=== PATIENT | female | born 1965 | race Caucasian/White ===

== ENCOUNTER 2016-02-29 16:39 | Emergency (ER) | payer OTHER ==
[~2016-02-29] VITALS: Ht 172.7 cm; Wt 76.8 kg
[~2016-02-29 16:39] MED LIST: ALPRAZOLAM0.5 MG PO; AMOXICILLIN500 M1 PO; ATORVASTATIN CA10 MG PO; Aspirin E.C. PO; BACTROBAN CREAM15 GM; BUSPAR10 MG PO; BUSPAR15 MG PO; BUSPAR5 MG PO; BUSPAR7.5 MG PO; CALCIUM 1,2001 EACH PO; CALCIUM 600 +1 EAC7 PO; CEFTIN500 MG PO; CLONAZEPAM1 MG PO; CLONAZEPAM2 M1 PO; CLONAZEPAM2 MG PO; CLONIDINE HCL0.1 MG PO; COLACE100 MG PO; Cipro PO; DICLOFENAC SODI50 MG PO; DICYCLOMINE HCL20 MG PO; DILAUDID2 MG PO; EFFEXOR XR150 MG PO; EFFEXOR XR75 MG PO; EFFEXOR75 MG PO; ELAVIL25 MG PO; ENDOCET 10-3251 EACH; ENDOCET 10-3251 EACH PO; FERROUS SULFAT324 MG; FERROUS SULFATE PO; FISH OIL 1,0001 EAC7 PO; FISH OIL CONC1 EACH PO; FLEXERIL10 MG PO; FLONASE16 G1 BOTH NARES; FLONASE16 GM NS; FLOVENT 44120 INHALA IH; FLOVENT DISKUS50 MCG IH; FORTAMET1000 M1 PO; Feosol PO; GEMFIBROZIL600 MG PO; GLUCOPHAGE1000 MG PO; HEMOCYTE324 MG PO; IMITREX100 MG PO; IMITREX6 MG/0.5 M SC; IMITREX6 MG/0.5 M SQ; IMITREX6 MG/0.52 SC; IMITREX6 MG/0.52 SQ; IMITREX6 MG/0.53 SC; IMODIUM MS REL1 EACH PO; IRON325 M1 PO; IRON325 MG; JANUMET; JANUMET 50-1,01 EACH PO; JANUMET 50/11 TABLET PO; KEFLEX500 MG PO; KLONOPIN2 MG PO; LISINOPRIL10 MG PO; LOPID600 MG PO; LOPRESSOR50 MG PO; LOVAZA1 GM PO; LYRICA100 MG PO; LYRICA50 MG PO; LYRICA75 MG PO; MECLIZINE HCL25 MG PO; MEDROL DOSEPAK4 MG PO; METAXALONE800 MG; METAXALONE800 MG PO; METFORMIN HCL500 MG PO; METOCLOPRAMIDE10 MG PO; METOPROLOL TART50 MG PO; MIRALAX17 GM PO; MIRTAZAPINE30 MG PO; MORPHINE SULFAT15 M1 PO; MS CONTIN,ORAMO15 M1 PO; NAPROSYN500 MG PO; OMEPRAZOLE20 M2 PO; OXYCODONE-APAP1 EACH PO; PERCOCET 10/1 TABLET PO; PERCOCET 5/31 TABLET PO; PERCOCET 7.51 TABLET PO; PHENADOZ25 MG PR; PHENERGAN12.5 M1 PO; PHENERGAN25 MG PR; PRAVACHOL40 MG PO; PRILOSEC OTC20 M1 PO; PRILOSEC OTC20 MG PO; PRILOSEC20 MG PO; PRILOSEC40 MG PO; PRINIVIL10 MG PO; PROMETHAZINE HC25 M1; PROMETHAZINE HC25 M1 PO; PROTONIX40 MG PO; Pravachol PO; QUETIAPINE FUM400 MG PO; RANITIDINE HCL150 MG PO; REGLAN10 M1 PO; REGLAN10 MG PO; REMERON30 M2 PO; RISPERDAL1 MG PO; Remeron PO; SEROQUEL XR150 MG PO; SEROQUEL100 MG PO; SEROQUEL200 MG PO; SEROQUEL300 MG PO; SEROQUEL400 MG PO; SEROquel PO; SKELAXIN400 M1 PO; SKELAXIN800 MG PO; STOOL SOFTENER100 MG PO; SUMATRIPTA6 MG/0.52; SUMATRIPTAN SU100 MG PO; Skelaxin PO; TOPAMAX50 MG PO; TOPIRAMATE50 MG PO; TOPROL XL50 MG PO; TORADOL10 MG PO; ULTRAM50 MG PO; VENLAFAXINE HC100 MG PO; VICODIN ES 71 TABLET PO; Vicodin ES 7.5/750 PO; ZANTAC150 MG PO; ZOFRAN ODT4 MG PO; ZOFRAN4 MG PO; ZOFRAN8 MG PO; [UNRECOGNIZED DRUG - OTHER] IV
[2016-02-29 19:46] LABS: HEMATOCRIT 36.9 % (36.0-46.0); MCH 28.9 PG (29.0-34.0); MCHC 33.3 G/DL (30.0-36.0); MCV 86.6 FL (83-99); MEAN PLAT.VOLUME 9.3 uM^3 (9.5-12.4); PLATELET COUNT 221 K/uL (156-360); RBC DIS.WIDTH-SD 40.1 % (39-53); RED BLOOD COUNT 4.26 M/uL (3.80-5.20); WHITE BLOOD COUNT 7.6 K/uL (4.1-10.2)
[2016-02-29 19:54] LABS: CHLORIDE 105 mEq/L (99-109); POTASSIUM 3.8 mEq/L (3.7-5.4); SODIUM 140 mEq/L (136-147)
[2016-02-29 19:56] LABS: GLUCOSE 101 mg/dL (70-99)
[2016-02-29 19:57] LABS: ANION GAP 11 MEQ/L (2-14)
[2016-02-29 19:58] LABS: TOTAL BILIRUBIN 0.4 mg/dL (0.0-1.0)
[2016-02-29 19:59] LABS: ALKALINE PHOSPHATASE 84 IU/L (3-129)
[2016-02-29 20:00] LABS: GFR ESTIMATE (CALCULATED) > 59 mL/min/
[2016-02-29 20:01] LABS: UREA NITROGEN (BUN) 23 mg/dL (9-23)
[2016-02-29 21:44] LABS: ADD MIUA? YES; BILIRUBIN NEGATIVE; BLOOD NEGATIVE; COLOR YELLOW ((YELLOW)); GLUCOSE (STRIP) NEGATIVE; KETONES NEGATIVE; LEUKOCYTES SMALL; NITRITE NEGATIVE; PROTEIN (STRIP) 30; SPECIFIC GRAVITY 1.031 (1.000-1.030); UROBILINOGEN 0.2 MG/DL (0.2-1.0)
[2016-02-29 22:01] VITALS: BP 115/59
[2016-02-29 22:01] LABS: BACTERIA NONE SEEN; CASTS NONE SEEN /LPF; CRYSTALS NONE SEEN; EPITHELIAL CELLS RARE; MUCUS NONE SEEN; RED BLOOD CELLS 0-5 /HPF (0-5); UBAC NUMBER 94.4; UCUL ADDED? NO; UEPI NUMBER 8.5; URBC NUMBER 20.5; UWBC NUMBER 96.5; WHITE BLOOD CELLS 15-20 /HPF (0-5)
== END 2016-02-29 22:06 | disposition home or self-care (01) ==
LOC: EME 16:39
PROVIDERS: Physician Assistant
DX: K59.00 Constipation, unspecified (principal); R10.31 Right lower quadrant pain; R39.15 Urgency of urination; R68.83 Chills (without fever); G89.29 Other chronic pain; E11.9 Type 2 diabetes mellitus without complications; E78.5 Hyperlipidemia, unspecified; Z79.891 Long term (current) use of opiate analgesic; J45.909 Unspecified asthma, uncomplicated
CPT/HCPCS: 74177; 80053; 81003; 85027; 99281; 99285; J2270; J7030

== ENCOUNTER 2016-03-20 10:59 | Day surgery (SDC) | payer OTHER ==
[~2016-03-20] VITALS: Ht 167.6 cm; Wt 76.6 kg
[~2016-03-20 10:59] MED LIST changes: +METFORMIN HCL1000 MG PO
[2016-03-20 11:50] LABS: POINT-OF-CARE METER ID UU14174212
== END 2016-03-20 12:45 | disposition home or self-care (01) ==
LOC: PAIN 10:59 → SDC 11:30 → PAIN 11:30
PROVIDERS: Anesthesiology Pain Medicine
PROC: 015R3ZZ Destruction of Sacral Nerve, Percutaneous Approach (ICD-10-PCS; principal; 2016-03-20)
PROC: 015B3ZZ Destruction of Lumbar Nerve, Percutaneous Approach (ICD-10-PCS; principal; 2016-03-20)
DX: M47.896 Other spondylosis, lumbar region (principal); M51.26 Other intervertebral disc displacement, lumbar region; M54.16 Radiculopathy, lumbar region; F41.1 Generalized anxiety disorder; M48.02 Spinal stenosis, cervical region; M79.1 Myalgia
CPT/HCPCS: 82948; J1030; J2250; J3010; S0020

== ENCOUNTER 2016-03-27 07:57 | Day surgery (SDC) | payer OTHER ==
[~2016-03-27] VITALS: Ht 177.8 cm; Wt 75.3 kg
[2016-03-27 08:21] LABS: POINT-OF-CARE METER ID UU14174212
== END 2016-03-27 10:12 | disposition home or self-care (01) ==
LOC: PAIN 07:57 → SDC 08:30 → PAIN 10:12
PROVIDERS: Anesthesiology Pain Medicine
PROC: 015B3ZZ Destruction of Lumbar Nerve, Percutaneous Approach (ICD-10-PCS; principal; 2016-03-27)
PROC: 015R3ZZ Destruction of Sacral Nerve, Percutaneous Approach (ICD-10-PCS; principal; 2016-03-27)
DX: M47.896 Other spondylosis, lumbar region (principal); M51.26 Other intervertebral disc displacement, lumbar region; M54.16 Radiculopathy, lumbar region; G62.9 Polyneuropathy, unspecified; F41.1 Generalized anxiety disorder; M79.1 Myalgia; M48.02 Spinal stenosis, cervical region; F33.1 Major depressive disorder, recurrent, moderate
CPT/HCPCS: 82948; J1030; J3010; S0020

== ENCOUNTER 2016-08-12 00:43 | Inpatient (IN) | payer OTHER ==
[~2016-08-12] VITALS: Ht 177.8 cm; Wt 79.5 kg
[~2016-08-12 00:43] MED LIST changes: +LYRICA150 MG PO
[2016-08-12 01:14] LABS: HEMATOCRIT 36.2 % (36.0-46.0); MCH 29.9 PG (29.0-34.0); MCHC 33.7 G/DL (30.0-36.0); MCV 88.7 FL (83-99); MEAN PLAT.VOLUME 9.6 uM^3 (9.5-12.4); PLATELET COUNT 220 K/uL (156-360); RBC DIS.WIDTH-CV 13.2 % (11.8-14.6); RBC DIS.WIDTH-SD 42.9 % (39-53); RED BLOOD COUNT 4.08 M/uL (3.80-5.20); WHITE BLOOD COUNT 7.5 K/uL (4.1-10.2)
[2016-08-12 01:23] LABS: CHLORIDE 105 mEq/L (99-109)
[2016-08-12 01:24] LABS: POTASSIUM 3.7 mEq/L (3.7-5.4); SODIUM 142 mEq/L (136-147)
[2016-08-12 01:25] LABS: GLUCOSE 277 mg/dL (70-99)
[2016-08-12 01:27] LABS: ANION GAP 11 MEQ/L (2-14)
[2016-08-12 01:28] LABS: SERUM ETHYL ALCOHOL < 10 mg/dL
[2016-08-12 01:29] LABS: GFR ESTIMATE (CALCULATED) 50 mL/min/
[2016-08-12 01:30] LABS: UREA NITROGEN (BUN) 20 mg/dL (9-23)
[2016-08-12 01:34] LABS: TROP-I INTERPRETATION NEGATIVE; TROPONIN-I < 0.01 ng/mL (0.0-0.30)
[2016-08-12 01:40] LABS: INTER. NORMALIZED RATIO 0.9; PTT 23.6 (25-32)
[2016-08-12 01:48] LABS: PROTHROMBIN TIME 9.4 (9.2-11.2)
[2016-08-12 09:33] VITALS: BP 144/79
[2016-08-12 09:36] VITALS: BP 144/79
[2016-08-12 15:35] VITALS: BP 118/56
[2016-08-13 07:22] VITALS: BP 145/73
[2016-08-13 15:46] VITALS: BP 157/81
[2016-08-14 01:54] VITALS: BP 154/88
[2016-08-14 01:56] LABS: POINT-OF-CARE METER ID UU14188576
[2016-08-14 02:37] VITALS: BP 125/68
[2016-08-14 02:49] LABS: BASOPHIL COUNT 0.1 K/uL (0-0.1); EOSINOPHIL (%) 1.3 % (0-5); EOSINOPHIL COUNT 0.1 K/uL (0-0.3); HEMATOCRIT 39.4 % (36.0-46.0); IMMATURE GRANULOCYTE (%) 0.8 % (0.0-0.7); IMMATURE GRANULOCYTE COUNT 0.1 K/uL; INSTRUMENT ABS NEUTROPHIL CT 6.4 K/uL; LYMPHOCYTE COUNT 1.5 K/uL (1.0-2.8); MCH 28.7 PG (29.0-34.0); MCHC 32.7 G/DL (30.0-36.0); MCV 87.6 FL (83-99); MEAN PLAT.VOLUME 9.3 uM^3 (9.5-12.4); MONOCYTE (%) 5.1 % (3-12); MONOCYTE COUNT 0.4 K/uL (0-0.8); NEUTROPHIL (%) 74.5 % (45-76); NEUTROPHIL COUNT 6.4 K/uL (1.8-6.4); PLATELET COUNT 197 K/uL (156-360); RBC DIS.WIDTH-CV 12.8 % (11.8-14.6); WHITE BLOOD COUNT 8.6 K/uL (4.1-10.2)
[2016-08-14 02:57] LABS: CHLORIDE 102 mEq/L (99-109); SODIUM 139 mEq/L (136-147)
[2016-08-14 02:59] LABS: GLUCOSE 203 mg/dL (70-99)
[2016-08-14 03:00] LABS: ANION GAP 10 MEQ/L (2-14)
[2016-08-14 03:01] LABS: TOTAL BILIRUBIN 0.6 mg/dL (0.0-1.0)
[2016-08-14 03:02] LABS: ALKALINE PHOSPHATASE 99 IU/L (3-129)
[2016-08-14 03:03] LABS: GFR ESTIMATE (CALCULATED) > 59 mL/min/
[2016-08-14 03:04] LABS: UREA NITROGEN (BUN) 18 mg/dL (9-23)
[2016-08-14 03:48] LABS: D-DIMER LATEX NEGATIVE
[2016-08-14] MEDS ORDERED: CEFTIN500 MG PO (15:31)
[2016-08-14] MEDS ORDERED: MACROBID100 MG PO (16:19)
== END 2016-08-14 02:52 | DRG 885 ==
LOC: EME 00:43 → 1WEST 03:40 → EDOF 03:40 → 1WEST 09:24
PROVIDERS: Emergency Medicine; Internal Medicine; Psychiatry & Neurology Psychiatry
DX: F33.3 Major depressive disorder, recurrent, severe with psychotic symptoms (principal); R45.851 Suicidal ideations; F41.1 Generalized anxiety disorder; R42 Dizziness and giddiness; R11.2 Nausea with vomiting, unspecified; E11.42 Type 2 diabetes mellitus with diabetic polyneuropathy; I50.9 Heart failure, unspecified; R07.9 Chest pain, unspecified; E78.00 Pure hypercholesterolemia, unspecified; E78.5 Hyperlipidemia, unspecified; G89.29 Other chronic pain; G43.909 Migraine, unspecified, not intractable, without status migrainosus; F17.200 Nicotine dependence, unspecified, uncomplicated; M54.9 Dorsalgia, unspecified; R61 Generalized hyperhidrosis; R79.89 Other specified abnormal findings of blood chemistry; M79.606 Pain in leg, unspecified; Z90.710 Acquired absence of both cervix and uterus
CPT/HCPCS: 71020; 80048; 80053; 82948; 84484; 85025; 85027; 85378; 85610; 85730; 93005; 99281; 99285; G0480; J3030; Q0169

== ENCOUNTER 2016-08-14 02:52 | Observation (INO) | payer OTHER ==
[~2016-08-14] VITALS: Ht 177.8 cm; Wt 76.9 kg
[2016-08-14 03:28] VITALS: BP 142/81
[2016-08-14 04:25] LABS: TROP-I INTERPRETATION NEGATIVE; TROPONIN-I < 0.01 ng/mL (0.0-0.30)
[2016-08-14 07:24] VITALS: BP 139/83
[2016-08-14 07:31] VITALS: BP 124/71; BP 139/83
[2016-08-14 07:35] VITALS: BP 122/67
[2016-08-14 07:42] LABS: POINT-OF-CARE METER ID UU14149397
[2016-08-14 09:52] LABS: HEMATOCRIT 39.1 % (36.0-46.0); MCH 29.1 PG (29.0-34.0); MCV 88.3 FL (83-99); MEAN PLAT.VOLUME 9.6 uM^3 (9.5-12.4); PLATELET COUNT 224 K/uL (156-360); RBC DIS.WIDTH-CV 12.9 % (11.8-14.6); RBC DIS.WIDTH-SD 41.6 % (39-53); RED BLOOD COUNT 4.43 M/uL (3.80-5.20)
[2016-08-14 10:16] LABS: ALKALINE PHOSPHATASE 87 IU/L (3-129); ANION GAP 10 MEQ/L (2-14); CHLORIDE 101 MEQ/L (99-109); GFR ESTIMATE (CALCULATED) > 59 mL/min/; GLUCOSE 131 mg/dL (70-99); SAMPLE HEMOLYSIS CHECK 0; SAMPLE ICTERIC CHECK 0; SAMPLE LIPEMIA CHECK 0; SODIUM 139 MEQ/L (136-147); TOTAL BILIRUBIN 0.7 MG/DL (0.0-1.0); UREA NITROGEN (BUN) 16 mg/dL (9-23)
[2016-08-14 10:35] LABS: TROP-I INTERPRETATION NEGATIVE; TROPONIN-I < 0.01 ng/mL (0.0-0.30)
[2016-08-14 11:36] LABS: POINT-OF-CARE METER ID UU14188577
[2016-08-14 12:56] VITALS: BP 165/85
[2016-08-14 13:30] LABS: ADD MIUA? YES; BILIRUBIN NEGATIVE; BLOOD NEGATIVE; COLOR YELLOW ((YELLOW)); GLUCOSE (STRIP) NEGATIVE; KETONES NEGATIVE; LEUKOCYTES LARGE; NITRITE NEGATIVE; PROTEIN (STRIP) 100; SPECIFIC GRAVITY 1.018 (1.000-1.030); UROBILINOGEN 0.2 MG/DL (0.2-1.0)
[2016-08-14 13:52] LABS: BACTERIA RARE /HPF; EPITHELIAL CELLS 1+ /HPF; MUCUS TRACE /LPF; RED BLOOD CELLS 0-5 /HPF (0-5); UCUL ADDED? YES; WHITE BLOOD CELLS TNTC /HPF (0-5)
[2016-08-14] MEDS ORDERED: CEFTIN500 MG PO (15:31)
[2016-08-14 15:32] LABS: TROP-I INTERPRETATION NEGATIVE; TROPONIN-I < 0.01 ng/mL (0.0-0.30)
[2016-08-14] MEDS ORDERED: MACROBID100 MG PO (16:19)
[2016-08-14 16:53] LABS: POINT-OF-CARE METER ID UU14149397
[2016-08-14 19:11] VITALS: BP 131/63
== END 2016-08-14 19:20 ==
LOC: 3EAST 02:52
PROVIDERS: Hospitalist; Internal Medicine; Physician Assistant
DX: I95.1 Orthostatic hypotension (principal); F33.9 Major depressive disorder, recurrent, unspecified; R45.851 Suicidal ideations; N39.0 Urinary tract infection, site not specified; R11.0 Nausea; R42 Dizziness and giddiness
CPT/HCPCS: 71010; 80053; 81003; 82948; 83605; 84484; 85027; 85379; 87040; 87086; 93005; 97165 GO; G0378; J1815; J2405; J7030; S0028

== ENCOUNTER 2016-08-14 19:02 | Inpatient (IN) | payer OTHER ==
[~2016-08-14] VITALS: Ht 177.8 cm; Wt 75.0 kg
[~2016-08-14 19:02] MED LIST changes: +MACROBID100 MG PO
[2016-08-14 19:34] VITALS: BP 152/70
[2016-08-15 07:55] VITALS: BP 105/57
[2016-08-15 15:24] VITALS: BP 129/58
[2016-08-16 07:22] VITALS: BP 114/58
[2016-08-16 15:25] VITALS: BP 109/62
[2016-08-17 07:29] VITALS: BP 117/73
[2016-08-17 16:20] VITALS: BP 120/59
[2016-08-18 07:53] VITALS: BP 116/68
[2016-08-18 15:49] VITALS: BP 122/55
[2016-08-19 07:40] VITALS: BP 119/65
[2016-08-19] MEDS ORDERED: CLONAZEPAM1 MG PO (09:23)
[2016-08-19] MEDS ORDERED: NITROFURANTOIN50 MG PO (09:23)
[2016-08-19] MEDS ORDERED: EFFEXOR50 MG PO (09:23)
[2016-08-19] MEDS ORDERED: NITROFURANTOIN100 MG PO (09:25)
== END 2016-08-19 14:00 | disposition home or self-care (01) | DRG 885 ==
LOC: 1WEST 19:02
DX: F33.2 Major depressive disorder, recurrent severe without psychotic features (principal); N39.0 Urinary tract infection, site not specified; R45.851 Suicidal ideations; F17.210 Nicotine dependence, cigarettes, uncomplicated; F41.1 Generalized anxiety disorder; E11.9 Type 2 diabetes mellitus without complications; G47.00 Insomnia, unspecified; Z88.5 Allergy status to narcotic agent; Z88.6 Allergy status to analgesic agent; Z88.1 Allergy status to other antibiotic agents; Z79.84 Long term (current) use of oral hypoglycemic drugs
CPT/HCPCS: 97150 GO; 97530 GO; J3030; Q0169

== ENCOUNTER 2016-10-21 09:35 | Emergency (ER) | payer OTHER ==
[~2016-10-21] VITALS: Ht 177.8 cm; Wt 67.0 kg
[~2016-10-21 09:35] MED LIST changes: +EFFEXOR50 MG PO; +NITROFURANTOIN100 MG PO; +NITROFURANTOIN50 MG PO
[2016-10-21 10:28] LABS: BASOPHIL COUNT 0.1 K/uL (0-0.1); EOSINOPHIL (%) 2.4 % (0-5); EOSINOPHIL COUNT 0.2 K/uL (0-0.3); HEMATOCRIT 38.9 % (36.0-46.0); IMMATURE GRANULOCYTE (%) 0.6 % (0.0-0.7); INSTRUMENT ABS NEUTROPHIL CT 3.3 K/uL; LYMPHOCYTE COUNT 2.4 K/uL (1.0-2.8); MCH 29.8 PG (29.0-34.0); MCHC 34.4 G/DL (30.0-36.0); MCV 86.6 FL (83-99); MEAN PLAT.VOLUME 9.6 uM^3 (9.5-12.4); MONOCYTE (%) 5.5 % (3-12); MONOCYTE COUNT 0.3 K/uL (0-0.8); NEUTROPHIL (%) 52.6 % (45-76); NEUTROPHIL COUNT 3.3 K/uL (1.8-6.4); PLATELET COUNT 195 K/uL (156-360); RBC DIS.WIDTH-SD 41.1 % (39-53); RED BLOOD COUNT 4.49 M/uL (3.80-5.20); WHITE BLOOD COUNT 6.2 K/uL (4.1-10.2)
[2016-10-21 10:35] LABS: PROTHROMBIN TIME 10.6 SEC (10.2-12.9)
[2016-10-21 10:37] LABS: CHLORIDE 105 mEq/L (99-109); SODIUM 138 mEq/L (136-147)
[2016-10-21 10:38] LABS: PTT 24.7 SEC (25-37)
[2016-10-21 10:39] LABS: GLUCOSE 157 mg/dL (70-99)
[2016-10-21 10:41] LABS: ANION GAP 13 MEQ/L (2-14); TOTAL BILIRUBIN 0.5 mg/dL (0.0-1.0)
[2016-10-21 10:43] LABS: ALKALINE PHOSPHATASE 106 IU/L (3-129); GFR ESTIMATE (CALCULATED) > 59 mL/min/
[2016-10-21 10:44] LABS: UREA NITROGEN (BUN) 19 mg/dL (9-23)
[2016-10-21 10:45] LABS: DIRECT BILIRUBIN 0.2 mg/dL (0.0-0.3)
[2016-10-21 10:46] LABS: LIPASE 67 U/L (1.0-51.0)
[2016-10-21 10:52] LABS: TROP-I INTERPRETATION NEGATIVE; TROPONIN-I < 0.01 ng/mL (0.0-0.30)
[2016-10-21 13:42] LABS: TROP-I INTERPRETATION NEGATIVE; TROPONIN-I < 0.01 ng/mL (0.0-0.30)
[2016-10-21] MEDS ORDERED: ZOFRAN ODT4 MG PO (14:08)
[2016-10-21 14:44] VITALS: BP 147/68
== END 2016-10-21 14:45 | disposition home or self-care (01) ==
LOC: EME 09:35
PROVIDERS: Emergency Medicine
DX: R07.9 Chest pain, unspecified (principal); R11.2 Nausea with vomiting, unspecified; I50.9 Heart failure, unspecified; E78.5 Hyperlipidemia, unspecified; E11.9 Type 2 diabetes mellitus without complications; J45.909 Unspecified asthma, uncomplicated; Z79.84 Long term (current) use of oral hypoglycemic drugs; Z85.41 Personal history of malignant neoplasm of cervix uteri; Z87.891 Personal history of nicotine dependence; Z82.49 Family history of ischemic heart disease and other diseases of the circulatory system
CPT/HCPCS: 71020; 80048; 80076; 83605; 83690; 83880; 84484; 85025; 85610; 85730; 93005; 99281; 99285; J1200; J2765; J7030

== ENCOUNTER 2016-10-27 18:59 | Observation (INO) | payer OTHER ==
[~2016-10-27] VITALS: Ht 177.8 cm; Wt 75.1 kg
[~2016-10-27 18:59] MED LIST changes: -LYRICA150 MG PO
[2016-10-27 20:10] LABS: HEMATOCRIT 39.7 % (36.0-46.0); MCH 29.5 PG (29.0-34.0); MCV 86.7 FL (83-99); MEAN PLAT.VOLUME 9.7 uM^3 (9.5-12.4); PLATELET COUNT 252 K/uL (156-360); RBC DIS.WIDTH-SD 40.9 % (39-53); RED BLOOD COUNT 4.58 M/uL (3.80-5.20); WHITE BLOOD COUNT 7.8 K/uL (4.1-10.2)
[2016-10-27 20:19] LABS: CHLORIDE 104 mEq/L (99-109); POTASSIUM 3.7 mEq/L (3.7-5.4); SODIUM 140 mEq/L (136-147)
[2016-10-27 20:20] LABS: GLUCOSE 115 mg/dL (70-99)
[2016-10-27 20:22] LABS: ANION GAP 14 MEQ/L (2-14)
[2016-10-27 20:24] LABS: GFR ESTIMATE (CALCULATED) > 59 mL/min/
[2016-10-27 20:25] LABS: UREA NITROGEN (BUN) 19 mg/dL (9-23)
[2016-10-27 20:33] LABS: TROP-I INTERPRETATION NEGATIVE; TROPONIN-I < 0.01 ng/mL (0.0-0.30)
[2016-10-27 22:21] LABS: SERUM ETHYL ALCOHOL < 10 mg/dL
[2016-10-27 22:59] LABS: HDL CHOLESTEROL 37 MG/DL (Desirable>=50); NON-HDL CHOLESTEROL 215 mg/dL (Desirable<160); TOTAL CHOLESTEROL 252 mg/dL (Desirable<200); TRIGLYCERIDES 540 MG/DL (Normal: <150)
[2016-10-27 23:12] VITALS: BP 143/70
[2016-10-28] MEDS ORDERED: KLONOPIN2 MG PO (00:16)
[2016-10-28 04:29] VITALS: BP 123/67
[2016-10-28 07:55] VITALS: BP 121/60
[2016-10-28 08:43] LABS: POINT-OF-CARE METER ID UU13113831
[2016-10-28] MEDS ORDERED: VENLAFAXINE HC100 MG PO (10:57)
[2016-10-28] MEDS ORDERED: FLUOXETINE HCL20 M1 PO (10:58)
[2016-10-28] MEDS ORDERED: RANITIDINE HCL150 M1 PO (10:58)
[2016-10-28] MEDS ORDERED: REMERON30 M2 PO (10:58)
[2016-10-28] MEDS ORDERED: LEVOCETIRIZINE D5 MG PO (10:59)
[2016-10-28 11:54] VITALS: BP 122/62
[2016-10-28 12:16] LABS: TROP-I INTERPRETATION NEGATIVE; TROPONIN-I < 0.01 ng/mL (0.0-0.30)
[2016-10-28 12:43] LABS: POINT-OF-CARE METER ID UU13113831
[2016-10-28 12:56] LABS: ADD MIUA? YES; BILIRUBIN NEGATIVE; BLOOD NEGATIVE; COLOR YELLOW ((YELLOW)); GLUCOSE (STRIP) NEGATIVE; KETONES NEGATIVE; LEUKOCYTES LARGE; NITRITE NEGATIVE; PROTEIN (STRIP) 100; SPECIFIC GRAVITY 1.031 (1.000-1.030); UROBILINOGEN 0.2 MG/DL (0.2-1.0)
[2016-10-28 13:02] LABS: BACTERIA NONE SEEN /HPF; EPITHELIAL CELLS RARE /HPF; MUCUS TRACE /LPF; RED BLOOD CELLS 0-5 /HPF (0-5); UCUL ADDED? YES; WHITE BLOOD CELLS 40-50 /HPF (0-5)
[2016-10-28 13:21] LABS: AMPHETAMINES QUANT VALUE 0 NG/ML; BARBITUATES QUANT VALUE 0 NG/ML; BENZODIAZEPINES, URINE SCREEN POSITIVE (200 ng/mL); MARIJUANA QUANT VALUE 0 NG/ML; OPIATES QUANTITATIVE VALUE 0 NG/ML; PHENCYCLIDINE QUANT VALUE 0 NG/ML
[2016-10-28 16:04] VITALS: BP 124/57
[2016-10-28 17:33] LABS: POINT-OF-CARE METER ID UU13113831
[2016-10-28 19:09] VITALS: BP 119/60
[2016-10-28 21:27] LABS: POINT-OF-CARE METER ID UU13113831
[2016-10-28 23:54] VITALS: BP 124/61
[2016-10-29 03:56] VITALS: BP 110/59
[2016-10-29 08:35] LABS: POINT-OF-CARE METER ID UU13113831
[2016-10-29 12:05] VITALS: BP 101/54
[2016-10-29 12:53] LABS: POINT-OF-CARE METER ID UU13113831
== END 2016-10-29 13:40 | disposition home or self-care (01) ==
LOC: EME 18:59 → EDOF 21:05 → 5WEST 21:05 → EDOF 21:05 → ENRESERV 21:09 → 5WEST 22:51
PROVIDERS: Internal Medicine; Physician Assistant Medical
DX: R07.89 Other chest pain (principal); G43.909 Migraine, unspecified, not intractable, without status migrainosus; R11.2 Nausea with vomiting, unspecified; R42 Dizziness and giddiness; F41.0 Panic disorder [episodic paroxysmal anxiety]; I10 Essential (primary) hypertension; E11.40 Type 2 diabetes mellitus with diabetic neuropathy, unspecified; J44.9 Chronic obstructive pulmonary disease, unspecified; B37.0 Candidal stomatitis; E78.5 Hyperlipidemia, unspecified; F31.9 Bipolar disorder, unspecified; Z87.891 Personal history of nicotine dependence; Z79.84 Long term (current) use of oral hypoglycemic drugs; Z91.5 Personal history of self-harm
CPT/HCPCS: 71020; 80048; 80061; 80306 90; 81003; 82948; 84484; 85027; 87086; 93005; 99281; 99285; G0378; G0480; J2060; J2405; J7030; Q0169

== ENCOUNTER 2016-12-01 14:36 | Emergency (ER) | payer OTHER ==
[~2016-12-01] VITALS: Ht 177.8 cm; Wt 78.2 kg
[~2016-12-01 14:36] MED LIST changes: +FLUOXETINE HCL20 M1 PO; +LEVOCETIRIZINE D5 MG PO; +RANITIDINE HCL150 M1 PO
[2016-12-01 18:02] VITALS: BP 149/49
== END 2016-12-01 18:03 | disposition home or self-care (01) ==
LOC: EME 14:36
DX: S93.402A Sprain of unspecified ligament of left ankle, initial encounter (principal); M54.2 Cervicalgia; M54.5 Low back pain; M25.512 Pain in left shoulder; X50.1XXA Overexertion from prolonged static or awkward postures, initial encounter; W01.0XXA Fall on same level from slipping, tripping and stumbling without subsequent striking against object, initial encounter; Y93.01 Activity, walking, marching and hiking; Y92.410 Unspecified street and highway as the place of occurrence of the external cause; M25.78 Osteophyte, vertebrae; I10 Essential (primary) hypertension; G89.29 Other chronic pain; Z79.891 Long term (current) use of opiate analgesic
CPT/HCPCS: 72100; 73030; 73564; 73610; 99281; 99283; J1885; J3010

== ENCOUNTER 2017-01-04 18:28 | Emergency (ER) | payer OTHER ==
[~2017-01-04] VITALS: Ht 177.8 cm; Wt 75.4 kg
[2017-01-04 19:04] LABS: BASOPHIL COUNT 0.1 K/uL (0-0.1); EOSINOPHIL (%) 2.6 % (0-5); EOSINOPHIL COUNT 0.3 K/uL (0-0.3); HEMATOCRIT 43.4 % (36.0-46.0); IMMATURE GRANULOCYTE (%) 0.3 % (0.0-0.7); INSTRUMENT ABS NEUTROPHIL CT 5.8 K/uL; LYMPHOCYTE COUNT 3.7 K/uL (1.0-2.8); MCHC 34.6 G/DL (30.0-36.0); MCV 86.8 FL (83-99); MEAN PLAT.VOLUME 9.9 uM^3 (9.5-12.4); MONOCYTE (%) 4.9 % (3-12); MONOCYTE COUNT 0.5 K/uL (0-0.8); NEUTROPHIL (%) 55.9 % (45-76); NEUTROPHIL COUNT 5.8 K/uL (1.8-6.4); PLATELET COUNT 247 K/uL (156-360); RBC DIS.WIDTH-CV 12.3 % (11.8-14.6); RBC DIS.WIDTH-SD 39.2 % (39-53); WHITE BLOOD COUNT 10.4 K/uL (4.1-10.2)
[2017-01-04 19:13] LABS: CHLORIDE 103 mEq/L (99-109); POTASSIUM 3.9 mEq/L (3.7-5.4); SODIUM 139 mEq/L (136-147)
[2017-01-04 19:15] LABS: GLUCOSE 138 mg/dL (70-99)
[2017-01-04 19:16] LABS: ANION GAP 17 MEQ/L (2-14)
[2017-01-04 19:17] LABS: TOTAL BILIRUBIN 0.9 mg/dL (0.0-1.0)
[2017-01-04 19:18] LABS: ALKALINE PHOSPHATASE 108 IU/L (3-129)
[2017-01-04 19:19] LABS: GFR ESTIMATE (CALCULATED) > 59 mL/min/
[2017-01-04 19:20] LABS: UREA NITROGEN (BUN) 19 mg/dL (9-23)
[2017-01-04 19:22] LABS: LIPASE 59 U/L (1.0-51.0)
[2017-01-04 19:28] LABS: QUANTITATIVE HCG < 4.0 MIU/ML
[2017-01-04 21:05] LABS: ADD MIUA? YES; BILIRUBIN NEGATIVE; BLOOD NEGATIVE; COLOR YELLOW ((YELLOW)); GLUCOSE (STRIP) NEGATIVE; KETONES 5; LEUKOCYTES SMALL; NITRITE NEGATIVE; PROTEIN (STRIP) 100; SPECIFIC GRAVITY 1.016 (1.000-1.030); UROBILINOGEN 0.2 MG/DL (0.2-1.0)
[2017-01-04 21:11] LABS: BACTERIA RARE /HPF; EPITHELIAL CELLS RARE /HPF; HYALINE CASTS 0-5 /LPF; MUCUS TRACE /LPF; RED BLOOD CELLS 0-5 /HPF (0-5); UCUL ADDED? YES; WHITE BLOOD CELLS 30-40 /HPF (0-5)
[2017-01-04 21:27] LABS: AMPHETAMINE NEGATIVE (500 ng/mL); BARBITURATES NEGATIVE (200 ng/mL); BENZODIAZEPINES NEGATIVE (150 ng/mL); COCAINE NEGATIVE (150 ng/mL); INTERNAL CONTROLS VALID? YES; METHADONE NEGATIVE (200 ng/mL); METHAMPHETAMINE NEGATIVE (500 ng/mL); OPIATES (MORPHINE) NEGATIVE (100 ng/mL); OXYCODONE NEGATIVE (100 ng/mL); PHENCYCLIDINE NEGATIVE (25 ng/mL); PROPOXYPHENE NEGATIVE (300 ng/mL); THC CANNABINOIDS NEGATIVE (50 ng/mL); TRICYCLIC ANTIDEPRESSANTS NEGATIVE (300 ng/mL)
[2017-01-04] MEDS ORDERED: ZOFRAN4 MG PO (21:32)
[2017-01-04 21:52] VITALS: BP 123/69
== END 2017-01-04 21:53 | disposition home or self-care (01) ==
LOC: EME 18:28
PROVIDERS: Emergency Medicine
DX: R10.84 Generalized abdominal pain (principal); E11.9 Type 2 diabetes mellitus without complications; J45.909 Unspecified asthma, uncomplicated; I50.9 Heart failure, unspecified; Z85.41 Personal history of malignant neoplasm of cervix uteri; Z90.710 Acquired absence of both cervix and uterus; E78.5 Hyperlipidemia, unspecified; I25.2 Old myocardial infarction; Z88.6 Allergy status to analgesic agent
CPT/HCPCS: 74176; 80053; 81003; 83690; 84702; 85025; 87086; 99281; 99284; J1630; J3010; J7050; J7120

== ENCOUNTER 2017-02-07 07:00 | Inpatient (IN) | payer OTHER ==
[~2017-02-07] VITALS: Ht 177.8 cm; Wt 75.5 kg
[2017-02-07 07:42] LABS: HEMATOCRIT 40.7 % (36.0-46.0); HEMOGLOBIN 13.7 G/DL (11.9-15.5); MCH 30.1 PG (29.0-34.0); MCHC 33.7 G/DL (30.0-36.0); MCV 89.5 FL (83-99); PLATELET COUNT 232 K/uL (156-360); RBC DIS.WIDTH-CV 12.6 % (11.8-14.6); RBC DIS.WIDTH-SD 41.1 % (39-53); RED BLOOD COUNT 4.55 M/uL (3.80-5.20); WHITE BLOOD COUNT 6.8 K/uL (4.1-10.2)
[2017-02-07 08:02] LABS: CHLORIDE 102 mEq/L (99-109)
[2017-02-07 08:03] LABS: POTASSIUM 4.1 mEq/L (3.7-5.4); SODIUM 140 mEq/L (136-147)
[2017-02-07 08:04] LABS: GLUCOSE 146 mg/dL (70-99)
[2017-02-07 08:07] LABS: SERUM ETHYL ALCOHOL < 10 mg/dL
[2017-02-07 08:08] LABS: CREATININE 1.1 mg/dL (0.6-1.3); GFR ESTIMATE (CALCULATED) 55 mL/min/
[2017-02-07 08:09] LABS: UREA NITROGEN (BUN) 16 mg/dL (9-23)
[2017-02-07 09:54] LABS: APPEARANCE CLOUDY ((CLEAR)); BILIRUBIN NEGATIVE; BLOOD NEGATIVE; COLOR YELLOW ((YELLOW)); GLUCOSE (STRIP) NEGATIVE; KETONES NEGATIVE; LEUKOCYTES LARGE; NITRITE NEGATIVE; PROTEIN (STRIP) >=500; UROBILINOGEN 0.2 MG/DL (0.2-1.0)
[2017-02-07 10:04] LABS: AMPHETAMINE NEGATIVE (500 ng/mL); BARBITURATES NEGATIVE (200 ng/mL); BENZODIAZEPINES PRESUMPTIVE POSITIVE (150 ng/mL); BUPRENORPHINE NEGATIVE (10 ng/mL); COCAINE NEGATIVE (150 ng/mL); METHADONE NEGATIVE (200 ng/mL); METHAMPHETAMINE NEGATIVE (500 ng/mL); OPIATES (MORPHINE) NEGATIVE (100 ng/mL); OXYCODONE PRESUMPTIVE POSITIVE (100 ng/mL); PHENCYCLIDINE NEGATIVE (25 ng/mL); PROPOXYPHENE NEGATIVE (300 ng/mL); THC CANNABINOIDS NEGATIVE (50 ng/mL); TRICYCLIC ANTIDEPRESSANTS NEGATIVE (300 ng/mL)
[2017-02-07 10:33] LABS: BACTERIA 2+ /HPF; EPITHELIAL CELLS RARE /HPF; MUCUS 1+ /LPF; RED BLOOD CELLS 0-5 /HPF (0-5); WHITE BLOOD CELLS 40-50 /HPF (0-5)
[2017-02-07 10:38] LABS: BENZODIAZEPINES, URINE SCREEN Negative (200 ng/mL)
[2017-02-07 12:47] VITALS: BP 123/67
[2017-02-07 15:39] VITALS: BP 116/74
[2017-02-08 09:27] VITALS: BP 143/73
[2017-02-08 16:06] VITALS: BP 124/64
[2017-02-09 07:48] VITALS: BP 117/59
[2017-02-09 15:32] VITALS: BP 125/72
[2017-02-09 21:39] VITALS: BP 106/57
[2017-02-10 07:06] VITALS: BP 120/61
[2017-02-10 15:24] VITALS: BP 102/60
[2017-02-11 07:36] VITALS: BP 93/56
[2017-02-11] MEDS ORDERED: BUSPAR10 MG PO (09:50)
== END 2017-02-11 13:37 | disposition home or self-care (01) | DRG 885 ==
LOC: EME 07:00 → EDOF 10:36 → 1WEST 10:36 → EDOF 11:11 → ENRESERV 12:19 → 1WEST 12:39
PROVIDERS: Nurse Practitioner Family; Psychiatry & Neurology Psychiatry
DX: F33.2 Major depressive disorder, recurrent severe without psychotic features (principal); R45.851 Suicidal ideations; F41.0 Panic disorder [episodic paroxysmal anxiety]; E11.42 Type 2 diabetes mellitus with diabetic polyneuropathy; G89.29 Other chronic pain; G43.109 Migraine with aura, not intractable, without status migrainosus; M54.5 Low back pain; M79.1 Myalgia; R13.10 Dysphagia, unspecified; I50.9 Heart failure, unspecified; G47.00 Insomnia, unspecified; Z91.14 Patient's other noncompliance with medication regimen; I25.2 Old myocardial infarction; J45.909 Unspecified asthma, uncomplicated; K21.9 Gastro-esophageal reflux disease without esophagitis; R11.2 Nausea with vomiting, unspecified; R42 Dizziness and giddiness; R47.81 Slurred speech; E78.5 Hyperlipidemia, unspecified; Z83.3 Family history of diabetes mellitus; Z85.41 Personal history of malignant neoplasm of cervix uteri; Z90.710 Acquired absence of both cervix and uterus
CPT/HCPCS: 80048; 81003; 82948; 84999; 85027; 90837; 97165 GO; 99281; 99285; G0480; J3030; Q0169; Q0177

== ENCOUNTER 2017-02-22 18:13 | Emergency (ER) | payer OTHER ==
[~2017-02-22] VITALS: Ht 177.8 cm; Wt 75.5 kg
[2017-02-22 18:48] LABS: HEMATOCRIT 42.4 % (36.0-46.0); HEMOGLOBIN 14.6 G/DL (11.9-15.5); MCHC 34.4 G/DL (30.0-36.0); MCV 87.1 FL (83-99); PLATELET COUNT 262 K/uL (156-360); RBC DIS.WIDTH-CV 12.2 % (11.8-14.6); RBC DIS.WIDTH-SD 38.9 % (39-53); RED BLOOD COUNT 4.87 M/uL (3.80-5.20); WHITE BLOOD COUNT 11.4 K/uL (4.1-10.2)
[2017-02-22 18:56] LABS: CHLORIDE 104 mEq/L (99-109); POTASSIUM 3.9 mEq/L (3.7-5.4); SODIUM 138 mEq/L (136-147)
[2017-02-22 18:57] LABS: GLUCOSE 241 mg/dL (70-99)
[2017-02-22 19:01] LABS: CREATININE 1.1 mg/dL (0.6-1.3); GFR ESTIMATE (CALCULATED) 55 mL/min/
[2017-02-22 19:02] LABS: UREA NITROGEN (BUN) 16 mg/dL (9-23)
[2017-02-22 19:09] LABS: TROP-I INTERPRETATION NEGATIVE; TROPONIN-I < 0.01 ng/mL (0.0-0.30)
[2017-02-22 21:22] LABS: CHLORIDE 107 mEq/L (99-109); POTASSIUM 4.6 mEq/L (3.7-5.4); SODIUM 140 mEq/L (136-147)
[2017-02-22 21:23] LABS: GLUCOSE 155 mg/dL (70-99)
[2017-02-22 21:27] LABS: CREATININE 0.8 mg/dL (0.6-1.3); GFR ESTIMATE (CALCULATED) > 59 mL/min/
[2017-02-22 21:28] LABS: UREA NITROGEN (BUN) 16 mg/dL (9-23)
[2017-02-22 22:14] VITALS: BP 152/58
== END 2017-02-22 22:15 | disposition home or self-care (01) ==
LOC: EME 18:13
PROVIDERS: Emergency Medicine
DX: F41.0 Panic disorder [episodic paroxysmal anxiety] (principal); F33.2 Major depressive disorder, recurrent severe without psychotic features; F60.7 Dependent personality disorder; J45.909 Unspecified asthma, uncomplicated; E78.5 Hyperlipidemia, unspecified; E11.9 Type 2 diabetes mellitus without complications; G43.909 Migraine, unspecified, not intractable, without status migrainosus; Z85.41 Personal history of malignant neoplasm of cervix uteri; Z88.8 Allergy status to other drugs, medicaments and biological substances
CPT/HCPCS: 71046; 80048; 80048 91; 84484; 85027; 90839; 93005; 99281; 99285; J1630; J1885; J2060; J7030

== ENCOUNTER 2017-03-11 16:02 | Inpatient (IN) | payer OTHER ==
[~2017-03-11] VITALS: Ht 177.8 cm; Wt 72.8 kg
[2017-03-11 16:58] LABS: HEMOGLOBIN 13.4 G/DL (11.9-15.5); MCH 30.3 PG (29.0-34.0); MCHC 34.4 G/DL (30.0-36.0); MCV 88.2 FL (83-99); PLATELET COUNT 211 K/uL (156-360); RBC DIS.WIDTH-CV 12.7 % (11.8-14.6); RBC DIS.WIDTH-SD 41.2 % (39-53); RED BLOOD COUNT 4.42 M/uL (3.80-5.20); WHITE BLOOD COUNT 7.3 K/uL (4.1-10.2)
[2017-03-11 17:09] LABS: ALBUMIN 4.9 g/dL (3.2-4.8); CHLORIDE 103 mEq/L (99-109); POTASSIUM 4.4 mEq/L (3.7-5.4); SODIUM 137 mEq/L (136-147)
[2017-03-11 17:12] LABS: GLUCOSE 213 mg/dL (70-99)
[2017-03-11 17:13] LABS: TOTAL BILIRUBIN 0.6 mg/dL (0.0-1.0)
[2017-03-11 17:15] LABS: ALKALINE PHOSPHATASE 100 IU/L (3-129); GFR ESTIMATE (CALCULATED) > 59 mL/min/; SERUM ETHYL ALCOHOL < 10 mg/dL
[2017-03-11 17:16] LABS: UREA NITROGEN (BUN) 19 mg/dL (9-23)
[2017-03-11 17:17] LABS: AST (GOT) 39 IU/L (2-34)
[2017-03-11 17:18] LABS: ALT (GPT) 58 IU/L (3-49)
[2017-03-11 20:25] LABS: APPEARANCE CLEAR ((CLEAR)); BILIRUBIN NEGATIVE; BLOOD NEGATIVE; COLOR YELLOW ((YELLOW)); GLUCOSE (STRIP) 150; KETONES NEGATIVE; LEUKOCYTES NEGATIVE; NITRITE NEGATIVE; PROTEIN (STRIP) 100; SPECIFIC GRAVITY 1.023 (1.000-1.030); UROBILINOGEN 0.2 MG/DL (0.2-1.0)
[2017-03-11 20:28] LABS: BACTERIA NONE SEEN /HPF; EPITHELIAL CELLS NONE SEEN /HPF; MUCUS TRACE /LPF; RED BLOOD CELLS 0-5 /HPF (0-5); WHITE BLOOD CELLS 0-5 /HPF (0-5)
[2017-03-11 20:39] LABS: AMPHETAMINE NEGATIVE (500 ng/mL); BARBITURATES NEGATIVE (200 ng/mL); BENZODIAZEPINES PRESUMPTIVE POSITIVE (150 ng/mL); BUPRENORPHINE NEGATIVE (10 ng/mL); COCAINE NEGATIVE (150 ng/mL); METHADONE NEGATIVE (200 ng/mL); METHAMPHETAMINE NEGATIVE (500 ng/mL); OPIATES (MORPHINE) NEGATIVE (100 ng/mL); OXYCODONE NEGATIVE (100 ng/mL); PHENCYCLIDINE NEGATIVE (25 ng/mL); PROPOXYPHENE NEGATIVE (300 ng/mL); THC CANNABINOIDS NEGATIVE (50 ng/mL); TRICYCLIC ANTIDEPRESSANTS NEGATIVE (300 ng/mL)
[2017-03-11 21:02] VITALS: BP 130/64
[2017-03-12 04:03] LABS: BENZODIAZEPINES, URINE SCREEN POSITIVE (200 ng/mL)
[2017-03-12 07:51] VITALS: BP 125/60
[2017-03-12] MEDS ORDERED: KLONOPIN2 MG PO (11:05)
[2017-03-12 15:40] VITALS: BP 137/70
[2017-03-13 08:19] VITALS: BP 132/62
[2017-03-13 15:46] VITALS: BP 122/75
[2017-03-14 09:25] VITALS: BP 131/72
[2017-03-14 15:33] VITALS: BP 125/68
[2017-03-14 21:41] VITALS: BP 92/54
[2017-03-15 08:08] VITALS: BP 117/55
[2017-03-15 14:59] VITALS: BP 120/60
[2017-03-16 07:56] VITALS: BP 104/56
[2017-03-16 16:03] VITALS: BP 133/76
[2017-03-17 01:55] VITALS: BP 117/56
[2017-03-17 07:39] VITALS: BP 111/62
[2017-03-17 15:24] VITALS: BP 109/58
[2017-03-18 07:49] VITALS: BP 124/61
[2017-03-18] MEDS ORDERED: ABILIFY5 MG PO (09:24)
[2017-03-18] MEDS ORDERED: KLONOPIN2 MG PO (09:24)
== END 2017-03-18 14:45 | disposition home or self-care (01) | DRG 885 ==
LOC: EME 16:02 → 1WEST 18:47 → EDOF 18:47 → ENRESERV 20:16 → 1WEST 20:51
PROVIDERS: Emergency Medicine; Psychiatry & Neurology Psychiatry
DX: F33.2 Major depressive disorder, recurrent severe without psychotic features (principal); R45.851 Suicidal ideations; F41.1 Generalized anxiety disorder; F43.20 Adjustment disorder, unspecified; F60.9 Personality disorder, unspecified; K21.9 Gastro-esophageal reflux disease without esophagitis; G43.909 Migraine, unspecified, not intractable, without status migrainosus; E11.9 Type 2 diabetes mellitus without complications; E78.5 Hyperlipidemia, unspecified
CPT/HCPCS: 80053; 81003; 82948; 84999; 85027; 90839; 97150 GO; 97165 GO; 99281; 99284; G0480; J3030; Q0169

== ENCOUNTER 2017-04-05 02:49 | Emergency (ER) | payer OTHER ==
[~2017-04-05] VITALS: Ht 177.8 cm; Wt 77.6 kg
[~2017-04-05 02:49] MED LIST changes: +ABILIFY5 MG PO
[2017-04-05 03:20] LABS: BASOPHIL COUNT 0.1 K/uL (0-0.1); EOSINOPHIL (%) 3.8 % (0-5); EOSINOPHIL COUNT 0.3 K/uL (0-0.3); HEMATOCRIT 36.8 % (36.0-46.0); HEMOGLOBIN 12.4 G/DL (11.9-15.5); IMMATURE GRANULOCYTE (%) 0.1 % (0.0-0.7); LYMPHOCYTE (%) 52.4 % (15-42); LYMPHOCYTE COUNT 3.8 K/uL (1.0-2.8); MCH 30.2 PG (29.0-34.0); MCHC 33.7 G/DL (30.0-36.0); MCV 89.8 FL (83-99); MONOCYTE (%) 5.3 % (3-12); MONOCYTE COUNT 0.4 K/uL (0-0.8); NEUTROPHIL (%) 37.4 % (45-76); NEUTROPHIL COUNT 2.7 K/uL (1.8-6.4); PLATELET COUNT 220 K/uL (156-360); RBC DIS.WIDTH-CV 12.6 % (11.8-14.6); RBC DIS.WIDTH-SD 41.3 % (39-53); WHITE BLOOD COUNT 7.2 K/uL (4.1-10.2)
[2017-04-05 03:30] LABS: ALBUMIN 4.3 g/dL (3.2-4.8); CHLORIDE 104 mEq/L (99-109); POTASSIUM 3.5 mEq/L (3.7-5.4); SODIUM 138 mEq/L (136-147)
[2017-04-05 03:31] LABS: MAGNESIUM 1.7 mg/dL (1.3-2.7)
[2017-04-05 03:33] LABS: GLUCOSE 218 mg/dL (70-99); TOTAL PROTEIN 6.9 g/dL (6.4-8.3)
[2017-04-05 03:35] LABS: TOTAL BILIRUBIN 0.4 mg/dL (0.0-1.0)
[2017-04-05 03:36] LABS: ALKALINE PHOSPHATASE 85 IU/L (3-129)
[2017-04-05 03:37] LABS: CREATININE 0.9 mg/dL (0.6-1.3); GFR ESTIMATE (CALCULATED) > 59 mL/min/
[2017-04-05 03:38] LABS: AST (GOT) 15 IU/L (2-34); UREA NITROGEN (BUN) 18 mg/dL (9-23)
[2017-04-05 03:40] LABS: ALT (GPT) 20 IU/L (3-49)
[2017-04-05 03:41] LABS: TROP-I INTERPRETATION NEGATIVE; TROPONIN-I 0.02 ng/mL (0.0-0.30)
[2017-04-05 04:25] VITALS: BP 148/59
== END 2017-04-05 04:26 | disposition home or self-care (01) ==
LOC: EME → EDBD 02:49 → EME 02:49
PROVIDERS: Emergency Medicine
DX: M94.0 Chondrocostal junction syndrome [Tietze] (principal); I50.9 Heart failure, unspecified; E78.5 Hyperlipidemia, unspecified; I25.2 Old myocardial infarction; E11.9 Type 2 diabetes mellitus without complications; J45.909 Unspecified asthma, uncomplicated; Z85.41 Personal history of malignant neoplasm of cervix uteri; Z88.6 Allergy status to analgesic agent
CPT/HCPCS: 71045; 80053; 83735; 84484; 85025; 93005; 99281; 99285

== ENCOUNTER 2017-07-02 09:32 | Day surgery (SDC) | payer OTHER ==
[~2017-07-02] VITALS: Ht 177.8 cm; Wt 80.3 kg
[~2017-07-02 09:32] MED LIST changes: +KLONOPIN1 MG PO; +LYRICA150 MG PO
== END 2017-07-02 10:45 | disposition home or self-care (01) ==
LOC: PAIN 09:32 → SDC 10:45 → PAIN 10:45
PROVIDERS: Anesthesiology Pain Medicine
DX: M47.816 Spondylosis without myelopathy or radiculopathy, lumbar region (principal); M51.16 Intervertebral disc disorders with radiculopathy, lumbar region; M79.7 Fibromyalgia; M47.812 Spondylosis without myelopathy or radiculopathy, cervical region; M54.12 Radiculopathy, cervical region; I10 Essential (primary) hypertension; E11.9 Type 2 diabetes mellitus without complications; Z79.84 Long term (current) use of oral hypoglycemic drugs; Z79.891 Long term (current) use of opiate analgesic; Z88.6 Allergy status to analgesic agent
CPT/HCPCS: 82948; J1030; J2250; S0020

== ENCOUNTER 2017-07-09 09:57 | Day surgery (SDC) | payer OTHER ==
[~2017-07-09] VITALS: Ht 177.8 cm; Wt 78.0 kg
== END 2017-07-09 11:35 | disposition home or self-care (01) ==
LOC: PAIN 09:57 → SDC 10:30 → PAIN 11:35
PROVIDERS: Anesthesiology Pain Medicine
DX: M47.816 Spondylosis without myelopathy or radiculopathy, lumbar region (principal); M51.16 Intervertebral disc disorders with radiculopathy, lumbar region; M47.812 Spondylosis without myelopathy or radiculopathy, cervical region; E11.9 Type 2 diabetes mellitus without complications; F41.9 Anxiety disorder, unspecified; K21.9 Gastro-esophageal reflux disease without esophagitis; I10 Essential (primary) hypertension; Z79.891 Long term (current) use of opiate analgesic; Z79.84 Long term (current) use of oral hypoglycemic drugs
CPT/HCPCS: 82948; J1030; J2250; S0020

== ENCOUNTER 2017-07-28 16:41 | Emergency (ER) | payer OTHER ==
[~2017-07-28] VITALS: Ht 177.8 cm; Wt 80.6 kg
[2017-07-28 17:27] LABS: HEMATOCRIT 38.3 % (36.0-46.0); HEMOGLOBIN 13.1 G/DL (11.9-15.5); MCH 30.7 PG (29.0-34.0); MCHC 34.2 G/DL (30.0-36.0); MCV 89.7 FL (83-99); PLATELET COUNT 188 K/uL (156-360); RBC DIS.WIDTH-CV 12.9 % (11.8-14.6); RED BLOOD COUNT 4.27 M/uL (3.80-5.20)
[2017-07-28 17:38] LABS: CHLORIDE 104 mEq/L (99-109); SODIUM 140 mEq/L (136-147)
[2017-07-28 17:40] LABS: GLUCOSE 202 mg/dL (70-99)
[2017-07-28 17:44] LABS: GFR ESTIMATE (CALCULATED) > 59 mL/min/
[2017-07-28 17:45] LABS: UREA NITROGEN (BUN) 19 mg/dL (9-23)
[2017-07-28] MEDS ORDERED: CLEOCIN300 MG PO (18:00)
[2017-07-28 18:14] VITALS: BP 126/80
== END 2017-07-28 18:16 | disposition home or self-care (01) ==
LOC: EME 16:41
PROVIDERS: Nurse Practitioner Family
DX: S80.812A Abrasion, left lower leg, initial encounter (principal); L03.116 Cellulitis of left lower limb; S93.402A Sprain of unspecified ligament of left ankle, initial encounter; W22.8XXA Striking against or struck by other objects, initial encounter; E11.9 Type 2 diabetes mellitus without complications; Z79.84 Long term (current) use of oral hypoglycemic drugs; I25.2 Old myocardial infarction; I50.9 Heart failure, unspecified; E78.5 Hyperlipidemia, unspecified; Z85.41 Personal history of malignant neoplasm of cervix uteri; J45.909 Unspecified asthma, uncomplicated; Z88.6 Allergy status to analgesic agent; Z88.1 Allergy status to other antibiotic agents; Z88.5 Allergy status to narcotic agent
CPT/HCPCS: 80048; 85027; 99281; 99284

== ENCOUNTER 2017-08-02 11:41 | Inpatient (IN) | payer OTHER ==
[~2017-08-02] VITALS: Ht 177.8 cm; Wt 79.0 kg
[~2017-08-02 11:41] MED LIST changes: +CLEOCIN300 MG PO
[2017-08-02 12:01] LABS: HEMATOCRIT 41.5 % (36.0-46.0); HEMOGLOBIN 14.4 G/DL (11.9-15.5); MCH 30.6 PG (29.0-34.0); MCHC 34.7 G/DL (30.0-36.0); MCV 88.1 FL (83-99); PLATELET COUNT 231 K/uL (156-360); RBC DIS.WIDTH-CV 12.8 % (11.8-14.6); RBC DIS.WIDTH-SD 40.9 % (39-53); RED BLOOD COUNT 4.71 M/uL (3.80-5.20); WHITE BLOOD COUNT 7.4 K/uL (4.1-10.2)
[2017-08-02 12:13] LABS: CHLORIDE 101 mEq/L (99-109); POTASSIUM 4.2 mEq/L (3.7-5.4); SODIUM 137 mEq/L (136-147)
[2017-08-02 12:15] LABS: GLUCOSE 209 mg/dL (70-99)
[2017-08-02 12:18] LABS: CREATININE 0.9 mg/dL (0.6-1.3); GFR ESTIMATE (CALCULATED) > 59 mL/min/
[2017-08-02 12:19] LABS: UREA NITROGEN (BUN) 20 mg/dL (9-23)
[2017-08-02] MEDS ORDERED: FLEXERIL5 MG PO (15:21)
[2017-08-02] MEDS ORDERED: MIRALAX17 GM PO (15:24)
[2017-08-02] MEDS ORDERED: BACTROBAN OINTM22 GM TP (15:25)
[2017-08-02 16:48] VITALS: BP 167/79
[2017-08-02 20:43] VITALS: BP 137/60
[2017-08-03 11:45] VITALS: BP 115/59
[2017-08-03 15:57] VITALS: BP 115/55
[2017-08-04 00:23] VITALS: BP 121/56
[2017-08-04] MEDS ORDERED: AVENTYL,PAMELOR10 MG PO (01:00)
[2017-08-04] MEDS ORDERED: DOCUSATE SODIU100 MG PO (01:02)
[2017-08-04] MEDS ORDERED: Vitamin B-12 PO (01:03)
[2017-08-04 07:16] VITALS: BP 104/53
== END 2017-08-04 10:25 | disposition home or self-care (01) | DRG 103 ==
LOC: EME 11:41 → 4SOUTH 14:57 → EDOF 14:57 → ENRESERV 15:03 → 4SOUTH 16:33
PROVIDERS: Internal Medicine
DX: G43.919 Migraine, unspecified, intractable, without status migrainosus (principal); F31.9 Bipolar disorder, unspecified; E11.42 Type 2 diabetes mellitus with diabetic polyneuropathy; I50.9 Heart failure, unspecified; E78.5 Hyperlipidemia, unspecified; J45.909 Unspecified asthma, uncomplicated; G89.29 Other chronic pain; F41.0 Panic disorder [episodic paroxysmal anxiety]; F41.9 Anxiety disorder, unspecified; K21.9 Gastro-esophageal reflux disease without esophagitis; S80.812A Abrasion, left lower leg, initial encounter; Y92.9 Unspecified place or not applicable; Y93.9 Activity, unspecified; Z90.710 Acquired absence of both cervix and uterus
CPT/HCPCS: 80048; 82948; 85027; 99281; 99285; G0378; J1110; J1200; J1815; J1885; J2060; J2765; J7030

== ENCOUNTER 2017-08-18 12:05 | Day surgery (SDC) | payer OTHER ==
[~2017-08-18] VITALS: Ht 177.8 cm; Wt 78.0 kg
[~2017-08-18 12:05] MED LIST changes: +AVENTYL,PAMELOR10 MG PO; +BACTROBAN OINTM22 GM TP; +DOCUSATE SODIU100 MG PO; +FLEXERIL5 MG PO; -LEVOCETIRIZINE D5 MG PO; +Vitamin B-12 PO; +XYZAL5 MG PO
[2017-08-21] MEDS ORDERED: VITAMIN B-12500 MC5 SL (10:22)
== END 2017-08-18 13:35 | disposition home or self-care (01) ==
LOC: PAIN 12:05 → SDC 12:30 → PAIN 12:30
PROVIDERS: Anesthesiology Pain Medicine
DX: M47.812 Spondylosis without myelopathy or radiculopathy, cervical region (principal); M54.12 Radiculopathy, cervical region; M48.02 Spinal stenosis, cervical region; M51.26 Other intervertebral disc displacement, lumbar region; M79.7 Fibromyalgia; G62.9 Polyneuropathy, unspecified; E11.9 Type 2 diabetes mellitus without complications; I10 Essential (primary) hypertension; R01.1 Cardiac murmur, unspecified; Z79.891 Long term (current) use of opiate analgesic; Z79.84 Long term (current) use of oral hypoglycemic drugs
CPT/HCPCS: 82948; J1030; J2250; S0020

== ENCOUNTER 2017-08-25 11:43 | Day surgery (SDC) | payer OTHER ==
[~2017-08-25] VITALS: Ht 177.8 cm; Wt 78.0 kg
[~2017-08-25 11:43] MED LIST changes: +VITAMIN B-12500 MC5 SL
== END 2017-08-25 13:47 | disposition home or self-care (01) ==
LOC: PAIN 11:43 → SDC 12:30 → PAIN 13:47
PROVIDERS: Anesthesiology Pain Medicine
PROC: 3E0T33Z Introduction of Anti-inflammatory into Peripheral Nerves and Plexi, Percutaneous Approach (ICD-10-PCS; principal; 2017-08-25)
PROC: 3E0T3BZ Introduction of Anesthetic Agent into Peripheral Nerves and Plexi, Percutaneous Approach (ICD-10-PCS; principal; 2017-08-25)
PROC: BR141ZZ Fluoroscopy of Cervical Facet Joint(s) using Low Osmolar Contrast (ICD-10-PCS; principal; 2017-08-25)
DX: M47.812 Spondylosis without myelopathy or radiculopathy, cervical region (principal); M48.02 Spinal stenosis, cervical region; M51.16 Intervertebral disc disorders with radiculopathy, lumbar region; M79.7 Fibromyalgia; D64.9 Anemia, unspecified; E11.9 Type 2 diabetes mellitus without complications; J45.909 Unspecified asthma, uncomplicated; I10 Essential (primary) hypertension; K21.9 Gastro-esophageal reflux disease without esophagitis; Z79.84 Long term (current) use of oral hypoglycemic drugs; Z79.891 Long term (current) use of opiate analgesic; Z88.6 Allergy status to analgesic agent; Z88.1 Allergy status to other antibiotic agents; Z88.5 Allergy status to narcotic agent; Z88.8 Allergy status to other drugs, medicaments and biological substances
CPT/HCPCS: 82948; J1030; J2250; S0020

== ENCOUNTER 2017-09-21 09:53 | Day surgery (SDC) | payer OTHER ==
[~2017-09-21] VITALS: Ht 177.8 cm; Wt 78.0 kg
== END 2017-09-21 12:30 | disposition home or self-care (01) ==
LOC: PAIN 09:53 → SDC 10:30 → PAIN 12:30
PROVIDERS: Anesthesiology Pain Medicine
DX: M47.812 Spondylosis without myelopathy or radiculopathy, cervical region (principal); M47.816 Spondylosis without myelopathy or radiculopathy, lumbar region; M79.7 Fibromyalgia; M51.36 Other intervertebral disc degeneration, lumbar region; G62.9 Polyneuropathy, unspecified; I10 Essential (primary) hypertension; J45.909 Unspecified asthma, uncomplicated; E11.9 Type 2 diabetes mellitus without complications; K21.9 Gastro-esophageal reflux disease without esophagitis; Z79.891 Long term (current) use of opiate analgesic; Z79.84 Long term (current) use of oral hypoglycemic drugs; Z88.6 Allergy status to analgesic agent; Z88.1 Allergy status to other antibiotic agents; Z88.5 Allergy status to narcotic agent; Z88.8 Allergy status to other drugs, medicaments and biological substances
CPT/HCPCS: 82948; J1030; J2250; J3010; S0020

== ENCOUNTER 2017-09-28 08:31 | Day surgery (SDC) | payer OTHER ==
[~2017-09-28] VITALS: Ht 177.8 cm; Wt 80.3 kg
== END 2017-09-28 10:45 | disposition home or self-care (01) ==
LOC: PAIN 08:31 → SDC 09:00 → PAIN 10:45
PROVIDERS: Anesthesiology Pain Medicine
PROC: B01B0ZZ Fluoroscopy of Spinal Cord using High Osmolar Contrast (ICD-10-PCS; principal; 2017-09-28)
PROC: 3E0T3TZ Introduction of Destructive Agent into Peripheral Nerves and Plexi, Percutaneous Approach (ICD-10-PCS; principal; 2017-09-28)
DX: M47.812 Spondylosis without myelopathy or radiculopathy, cervical region (principal); M46.96 Unspecified inflammatory spondylopathy, lumbar region; M51.36 Other intervertebral disc degeneration, lumbar region; E11.40 Type 2 diabetes mellitus with diabetic neuropathy, unspecified; F41.0 Panic disorder [episodic paroxysmal anxiety]; F32.9 Major depressive disorder, single episode, unspecified; Z79.84 Long term (current) use of oral hypoglycemic drugs; Z88.1 Allergy status to other antibiotic agents; Z88.5 Allergy status to narcotic agent; Z88.6 Allergy status to analgesic agent; Z88.8 Allergy status to other drugs, medicaments and biological substances
CPT/HCPCS: 82948; J1030; J2250; J3010; S0020